=== PATIENT | male | born 1965 | race Caucasian/White ===

== ENCOUNTER 2019-07-23 16:57 | Emergency (ER) | payer OTHER ==
[~2019-07-23] VITALS: Ht 167.6 cm; Wt 72.0 kg
--- NOTE | 2019-07-23 20:22 | REPVR ---
PROCEDURE INFORMATION: Exam: MR Lumbar Spine Without Contrast. Exam date and time: 07/23/2019 8:02 PM Age: 54 years old Clinical indication: Other: Urinary retention, fall 2 wks ago TECHNIQUE: Imaging protocol: Multiplanar magnetic resonance images of the lumbar spine without contrast. COMPARISON: No relevant prior studies available. FINDINGS: Retrolisthesis of L4 on L5 measures 5 mm. Anterolisthesis of L5 on S1 secondary to bilateral L5 pars defects measures 12 mm. There is mild chronic loss of height of L5. Remaining levels demonstrate preserved height. There is degenerative endplate signal. No evidence of discitis/osteomyelitis. Conus medullaris terminates at L1. No epidural fluid collection. There is reactive edema involving the bilateral L3-L4 facet joints. L1-L2: Mild disc bulge without significant central or foraminal stenosis. L2-L3: Mild disc bulge and mild bilateral facet joint arthropathy. No significant central canal or foraminal stenosis. L2-L3: Mild disc bulge with moderate bilateral facet joint arthropathy, small bilateral facet joint effusions and posterior laxity of ligamentum flavum. No significant central canal stenosis. There is mild left foraminal stenosis. L4-L5: Mild disc bulge and mild bilateral facet joint arthropathy. No significant central canal stenosis. There is moderate bilateral foraminal stenosis. L5-S1: Unroofing of disc with mild disc bulge. No significant central canal stenosis. There is severe bilateral foraminal stenosis with mass effect upon both exiting L5 nerves. IMPRESSION: 1. Bilateral L5 pars defects with anterolisthesis of L5 on S1 measuring 12 mm. Associated severe bilateral foraminal stenosis at L5-S1 with mass effect upon both exiting L5 nerves. 2. No significant central canal compromise. 3. Reactive edema involving the bilateral L3-L4 facet joints. Finding can be pain generating. Electronically signed by: Judson Bennett On 07/23/2019 20:21:55 PM
[2019-07-23] MEDS ORDERED: FLOM0.4C39 PO (21:24)
[2019-07-23] MEDS ORDERED: TAMSULOSIN 0.4 MG CAP PO ONE (21:30)
[2019-07-23 22:04] VITALS: BP 164/96
[2019-07-23 22:13] LABS: BASO # 0.1 10^3/uL (0.0-0.2); BASO % 0.8 % (0.0-1.0); EOS # 0.2 10^3/uL (0.0-0.5); EOS % 1.7 % (0.0-3.0); HEMATOCRIT 44.9 % (42.0-52.0); HEMOGLOBIN 15.9 g/dl (13.5-17.5); LYMPH # 3.4 10^3/uL (1.5-5.0); LYMPH % 33.5 % (24.0-44.0); MEAN CORPUSCULAR HEMOGLOBIN 32.2 pg (27.0-33.0); MEAN CORPUSCULAR HGB CONC 35.4 g/dl (32.0-36.5); MEAN CORPUSCULAR VOLUME 90.9 fl (80.0-96.0); MONO # 1.1 10^3/uL (0.0-0.8); MONO % 10.2 % (0.0-5.0); NEUTROPHILS # 5.5 10^3/uL (1.5-8.5); NEUTROPHILS % 53.5 % (36.0-66.0); PLATELET COUNT, AUTOMATED 345 10^3/uL (150-450); RED BLOOD COUNT 4.94 10^6/uL (4.30-6.10); WHITE BLOOD COUNT 10.3 10^3/uL (4.0-10.0)
--- NOTE | 2019-07-24 10:51 | ED PDOC ---
Post-Departure Follow-Up dr tian faxed formal report of mri ls spine for fu Julio Chatman MD Jul 24, 2019 10:51
== END 2019-07-23 22:28 | disposition home or self-care (01) ==
LOC: M ED 16:57
DX: R33.9 Retention of urine, unspecified (principal); M54.16 Radiculopathy, lumbar region; M43.16 Spondylolisthesis, lumbar region; M99.53 Intervertebral disc stenosis of neural canal of lumbar region; F17.200 Nicotine dependence, unspecified, uncomplicated

== ENCOUNTER 2022-11-03 08:56 | Emergency (ER) | payer MEDICARE, OTHER ==
[~2022-11-03] VITALS: Ht 167.6 cm; Wt 67.8 kg
[2022-11-03 08:56] VITALS: TEMP 97.1
[~2022-11-03 08:56] MED LIST: FLOM0.4C39 PO
[2022-11-03] MEDS ORDERED: LACTULOSE 20GM/30ML SYRUP UDC PO ONE (10:00)
[2022-11-03] MEDS ORDERED: MIRA3350 PO (10:12)
[2022-11-03] MEDS ORDERED: COLA100C5 PO (10:12)
[2022-11-03 10:20] VITALS: BP 165/78; O2SAT 98
== END 2022-11-03 10:31 | disposition home or self-care (01) ==
LOC: M ED 08:56
DX: K59.00 Constipation, unspecified (principal); F17.200 Nicotine dependence, unspecified, uncomplicated; Z79.899 Other long term (current) drug therapy

== ENCOUNTER → 2023-02-01 | Outpatient (REF) | payer MEDICARE ==
[~2023-02-01] MED LIST changes: +COLA100C5 PO; +MIRA3350 PO
[2023-02-02 13:10] LABS: ALBUMIN 4.6 G/DL (3.2-5.2); ALKALINE PHOSPHATASE 114 U/L (46-116); ALT/SGPT 27 U/L (7.0-40); AST/SGOT 36 U/L (<34); BILIRUBIN,TOTAL 0.5 MG/DL (0.3-1.2); BLOOD UREA NITROGEN 9 MG/DL (9-23); CALCIUM LEVEL 9.6 MG/DL (8.5-10.1); CARBON DIOXIDE LEVEL 25 MMOL/L (20-31); CHLORIDE LEVEL 101 MMOL/L (98-107); CHOLESTEROL LEVEL 226 MG/DL (<200); CHOLESTEROL RISK RATIO 3.65 (<5); CREATININE FOR GFR 0.66 MG/DL (0.70-1.30); GLOMERULAR FILTRATION RATE > 60.0 (>56); GLUCOSE, FASTING 82 MG/DL (60-100); HDL CHOLESTEROL 61.9 MG/DL (>40); LDL CHOLESTEROL 148.9 MG/DL (<100); NON-HDL-C 164.1 MG/DL; POTASSIUM SERUM 4.3 MMOL/L (3.5-5.1); SODIUM LEVEL 132 MMOL/L (136-145); TOTAL PROTEIN 8.1 G/DL (5.7-8.2); TRIGLYCERIDES LEVEL 76 MG/DL (<150)
[2023-02-02 13:12] LABS: THYROID STIMULATING HORMONE 14.946 uIU/ML (0.55-4.78); TOTAL 25(OH) VITAMIN D 29.5 NG/ML (20.0-100.0)
[2023-02-02 13:21] LABS: BASO # 0.1 10^3/uL (0.0-0.2); BASO % 0.8 % (0.0-1.0); EOS # 0.1 10^3/uL (0.0-0.5); EOS % 0.9 % (0.0-3.0); HEMATOCRIT 43.4 % (42.0-52.0); HEMOGLOBIN 14.9 g/dl (13.5-17.5); LYMPH % 29.9 % (24.0-44.0); MEAN CORPUSCULAR HEMOGLOBIN 30.5 pg (27.0-33.0); MEAN CORPUSCULAR HGB CONC 34.3 g/dl (32.0-36.5); MEAN CORPUSCULAR VOLUME 88.9 fl (80.0-96.0); MONO # 1.1 10^3/uL (0.0-0.8); MONO % 10.6 % (2.0-8.0); NEUTROPHILS # 5.7 10^3/uL (1.5-8.5); NEUTROPHILS % 57.4 % (36.0-66.0); PLATELET COUNT, AUTOMATED 296 10^3/uL (150-450); RED BLOOD COUNT 4.88 10^6/uL (4.30-6.10); WHITE BLOOD COUNT 9.9 10^3/uL (4.0-10.0)
[2023-02-02 13:48] LABS: HEMOGLOBIN A1c 5.7 % (4.0-6.0)
== END ==
LOC: M LAB REF 12:09
PROVIDERS: ATTEND Nurse Practitioner Family
DX: E66.3 Overweight (principal); E55.9 Vitamin D deficiency, unspecified; Z11.9 Encounter for screening for infectious and parasitic diseases, unspecified; R33.8 Other retention of urine; R53.83 Other fatigue; Z79.899 Other long term (current) drug therapy
CPT/HCPCS: 80053; 80061; 82306; 83036; 84443; 85025; 86780; G0103

== ENCOUNTER → 2023-03-28 | Outpatient (REF) | payer MEDICARE ==
[2023-03-28 20:24] LABS: THYROID PEROXIDASE ANTIBODY > 1300.0 U/ML (<60.0)
== END ==
LOC: M LAB REF 16:23
PROVIDERS: ATTEND Nurse Practitioner Family
DX: R89.1 Abnormal level of hormones in specimens from other organs, systems and tissues (principal); Z79.899 Other long term (current) drug therapy

== ENCOUNTER → 2023-04-25 | Day surgery (SDC) | payer MEDICARE, MEDICAID ==
[~2023-04-25] VITALS: Ht 167.6 cm; Wt 66.6 kg
[~2023-04-25] MED LIST changes: +AMLO1TAB24 PO; +ATOR1TAB19 PO; +LIDOCAINE 2% 100MG/5ML SDV (FOR ANES.) As Ordered ONE; +META0.52 PO; +NS 1,000 ML IV ONE; +TAMS1CAP17 PO; +ePHEDrine SULFATE 25 MG/5 ML(5MG/ML) SYRINGE As Ordered ONE; +propofoL 200 MG/20 ML VIAL As Ordered ONE
[2023-04-25 10:27] VITALS: TEMP 97.3
[2023-04-25 10:45] VITALS: BP 135/88; O2SAT 97
== END | disposition home or self-care (01) ==
LOC: M OPP 08:35
PROVIDERS: ATTEND Surgery
DX: Z12.11 Encounter for screening for malignant neoplasm of colon (principal); D12.2 Benign neoplasm of ascending colon; D12.3 Benign neoplasm of transverse colon; K63.5 Polyp of colon; F17.200 Nicotine dependence, unspecified, uncomplicated; Z79.02 Long term (current) use of antithrombotics/antiplatelets; Z79.83 Long term (current) use of bisphosphonates; Z79.899 Other long term (current) drug therapy

== ENCOUNTER 2023-05-07 12:48 | Emergency (ER) | payer MEDICARE, MEDICAID ==
[~2023-05-07] VITALS: Ht 170.2 cm; Wt 79.3 kg
[~2023-05-07 12:48] MED LIST changes: -LIDOCAINE 2% 100MG/5ML SDV (FOR ANES.) As Ordered ONE; -NS 1,000 ML IV ONE; -ePHEDrine SULFATE 25 MG/5 ML(5MG/ML) SYRINGE As Ordered ONE; -propofoL 200 MG/20 ML VIAL As Ordered ONE
[2023-05-07] MEDS ORDERED: LEVO88TA3 PO (13:05)
[2023-05-07 15:02] LABS: BASO # 0.1 10^3/uL (0.0-0.2); BASO % 0.6 % (0.0-1.0); EOS # 0.1 10^3/uL (0.0-0.5); EOS % 0.7 % (0.0-3.0); HEMATOCRIT 40.5 % (42.0-52.0); HEMOGLOBIN 13.9 g/dl (13.5-17.5); LYMPH # 2.4 10^3/uL (1.5-5.0); LYMPH % 20.3 % (24.0-44.0); MEAN CORPUSCULAR HEMOGLOBIN 30.6 pg (27.0-33.0); MEAN CORPUSCULAR HGB CONC 34.3 g/dl (32.0-36.5); MEAN CORPUSCULAR VOLUME 89.2 fl (80.0-96.0); MONO # 1.2 10^3/uL (0.0-0.8); MONO % 10.5 % (2.0-8.0); NEUTROPHILS # 7.9 10^3/uL (1.5-8.5); NEUTROPHILS % 67.6 % (36.0-66.0); PLATELET COUNT, AUTOMATED 283 10^3/uL (150-450); RED BLOOD COUNT 4.54 10^6/uL (4.30-6.10); WHITE BLOOD COUNT 11.7 10^3/uL (4.0-10.0)
[2023-05-07] MEDS ORDERED: KETOROLAC 30 MG/ML 1ML VIAL IV ONE (15:20)
[2023-05-07 15:21] LABS: ALBUMIN 4.1 G/DL (3.2-5.2); BILIRUBIN,DIRECT 0.3 MG/DL (<0.4); BILIRUBIN,TOTAL 0.6 MG/DL (0.3-1.2); TOTAL PROTEIN 7.5 G/DL (5.7-8.2)
[2023-05-07] MEDS ORDERED: ISOVUE-370 76% 100ML VIAL As Ordered ONE ×2 (15:33→15:47)
[2023-05-07] MEDS ORDERED: LIDOCAINE 2% 5ML JELLY UROJET TOP ONE (16:30)
[2023-05-07] MEDS ORDERED: cefTRIAXone SOD 1 GM in D5W MINI-BAG PLUS 50 ML IV ONE (17:55)
[2023-05-07] MEDS ORDERED: CEFP200T PO (18:12)
[2023-05-07 19:27] VITALS: BP 149/88; TEMP 97.1; O2SAT 96
[2023-05-10] MEDS ORDERED: VITA40TA PO (10:08)
== END 2023-05-07 19:51 | disposition home or self-care (01) ==
LOC: M ED 12:48
DX: N39.0 Urinary tract infection, site not specified (principal); R16.0 Hepatomegaly, not elsewhere classified; R33.9 Retention of urine, unspecified; R91.8 Other nonspecific abnormal finding of lung field; E03.9 Hypothyroidism, unspecified; I10 Essential (primary) hypertension; Z79.02 Long term (current) use of antithrombotics/antiplatelets; Z79.1 Long term (current) use of non-steroidal anti-inflammatories (NSAID); Z79.83 Long term (current) use of bisphosphonates; Z79.899 Other long term (current) drug therapy
CPT/HCPCS: 51702; 71260; 74177; 76705; 80047; 80076; 81001; 83690; 85025; 87088; 96374; 96375; 99284; J0696; J1885; Q9967

== ENCOUNTER → 2023-05-25 | Outpatient (CLI) | payer MEDICARE, MEDICAID ==
[~2023-05-25] MED LIST changes: +CEFP200T PO; +LEVO88TA3 PO; +LIDOCAINE 1% MDV 20ML VIAL As Ordered ONE; +VITA40TA PO
[2023-05-25 10:16] VITALS: TEMP 97.5
[2023-05-25 13:30] VITALS: BP 155/64; O2SAT 97
== END ==
LOC: M IRPRO 09:48
PROVIDERS: ATTEND Specialist
DX: C78.7 Secondary malignant neoplasm of liver and intrahepatic bile duct (principal); K76.89 Other specified diseases of liver

== ENCOUNTER → 2023-06-11 | Outpatient (REF) | payer MEDICARE, MEDICAID, OTHER ==
[~2023-06-11] MED LIST changes: -LIDOCAINE 1% MDV 20ML VIAL As Ordered ONE
== END ==
LOC: M LAB REF 11:38
PROVIDERS: ATTEND Nurse Practitioner Family
DX: E03.9 Hypothyroidism, unspecified (principal)

== ENCOUNTER → 2023-06-25 | Outpatient (REF) | payer MEDICARE, MEDICAID, OTHER | LOC: M LAB REF 16:03 | PROVIDERS: ATTEND Nurse Practitioner Family | DX: R39.9 Unspecified symptoms and signs involving the genitourinary system (principal) ==

== ENCOUNTER → 2023-07-04 | Outpatient (CLI) | payer MEDICARE, MEDICAID ==
[~2023-07-04] VITALS: Ht 170.2 cm; Wt 65.0 kg
[~2023-07-04] MED LIST changes: +DEXA4TA PO; +FOLI1TAB11 PO; +LIDOCAINE 1% MDV 20ML VIAL As Ordered ONE; +LIDOCAINE W/EPINEPHRINE 1% 20ML VIAL As Ordered ONE; +MIDAZOLAM INJ 2MG/2ML VIAL As Ordered ONE; +OMEP20TA3 PO; +ONDA-84 PO; +RANI15TA PO; +ceFAZolin 2 GM/D5W 50 ML IV BAG As Ordered ONE; +ceFAZolin SOD 2 GM in IV 1 EA IV ONE; +fentaNYL 100 MCG/2 ML INJECTION As Ordered ONE
[2023-07-04 07:15] VITALS: TEMP 97.6
[2023-07-04 09:40] VITALS: BP 117/71; O2SAT 96
== END ==
LOC: M IRPRO 06:48
PROVIDERS: ATTEND Specialist
DX: K76.9 Liver disease, unspecified (principal)
CPT/HCPCS: 36561; 99152; 99153; C1769; J0690; J2250; J3010

== ENCOUNTER → 2023-07-17 | Outpatient (CLI) | payer MEDICARE, MEDICAID ==
[~2023-07-17] MED LIST changes: +GASTROGRAFIN SOLUTION 30ML As Ordered ONE; +ISOVUE-370 76% 100ML VIAL As Ordered ONE; -LIDOCAINE 1% MDV 20ML VIAL As Ordered ONE; -LIDOCAINE W/EPINEPHRINE 1% 20ML VIAL As Ordered ONE; -MIDAZOLAM INJ 2MG/2ML VIAL As Ordered ONE; -ceFAZolin 2 GM/D5W 50 ML IV BAG As Ordered ONE; -ceFAZolin SOD 2 GM in IV 1 EA IV ONE; -fentaNYL 100 MCG/2 ML INJECTION As Ordered ONE
== END ==
LOC: M RAD 08:29
PROVIDERS: ATTEND Internal Medicine Hematology & Oncology
DX: C34.11 Malignant neoplasm of upper lobe, right bronchus or lung (principal); C78.7 Secondary malignant neoplasm of liver and intrahepatic bile duct; N28.89 Other specified disorders of kidney and ureter; R18.8 Other ascites; I70.0 Atherosclerosis of aorta; E27.9 Disorder of adrenal gland, unspecified; I77.819 Aortic ectasia, unspecified site; I25.10 Atherosclerotic heart disease of native coronary artery without angina pectoris
CPT/HCPCS: 71260; 74177; Q9963; Q9967

== ENCOUNTER 2023-07-19 13:34 | Inpatient (IN) | payer MEDICARE, MEDICAID ==
[~2023-07-19] VITALS: Ht 170.2 cm; Wt 70.4 kg
[2023-07-19] VITALS (18 sets, daily range): BP systolic 81–135; BP diastolic 51–80; TEMP 96.5–98.1; O2SAT 97–100
[~2023-07-19 13:34] MED LIST changes: -GASTROGRAFIN SOLUTION 30ML As Ordered ONE; -ISOVUE-370 76% 100ML VIAL As Ordered ONE
[2023-07-19] MEDS: NS 1,000 ML IV ONE (13:45)
[2023-07-19 14:26] LABS: BASO % 0.1 % (0.0-1.0); LYMPH # 1.6 10^3/uL (1.5-5.0); LYMPH % 11.3 % (24.0-44.0); MEAN CORPUSCULAR HEMOGLOBIN 32.1 pg (27.0-33.0); MEAN CORPUSCULAR HGB CONC 31.8 g/dl (32.0-36.5); MEAN CORPUSCULAR VOLUME 100.9 fl (80.0-96.0); MONO # 0.5 10^3/uL (0.0-0.8); MONO % 3.5 % (2.0-8.0); NEUTROPHILS # 11.5 10^3/uL (1.5-8.5); NEUTROPHILS % 83.9 % (36.0-66.0); PLATELET COUNT, AUTOMATED 156 10^3/uL (150-450); RED BLOOD COUNT 2.12 10^6/uL (4.30-6.10); WHITE BLOOD COUNT 13.7 10^3/uL (4.0-10.0)
[2023-07-19 14:40] LABS: HEMOGLOBIN 6.8 g/dl (13.5-17.5)
[2023-07-19 14:41] LABS: HEMATOCRIT 21.4 % (42.0-52.0)
[2023-07-19 14:42] LABS: INR 2.33; PARTIAL THROMBOPLASTIN TIME 33.7 SECONDS (24.8-34.2); PROTHROMBIN TIME 24.7 SECONDS (12.5-14.5)
[2023-07-19 14:47] LABS: CK-MB VALUE MASS 8.7 NG/ML (<3.6)
[2023-07-19 14:48] LABS: LIPASE 35 U/L (12-53)
[2023-07-19 14:50] LABS: CPK CREATINE PHOSPHOKINASE 292 U/L (46-171); MB/CK RELATIVE INDEX 2.97 (< OR =4)
[2023-07-19 14:52] LABS: FREE T4 1.13 NG/DL (0.89-1.76); THYROID STIMULATING HORMONE 2.571 uIU/ML (0.55-4.78)
[2023-07-19 14:57] LABS: ALBUMIN 1.9 G/DL (3.2-5.2); ALKALINE PHOSPHATASE 535 U/L (46-116); ALT/SGPT 92 U/L (7.0-40); AST/SGOT 224 U/L (<34); BILIRUBIN,DIRECT 1.9 MG/DL (<0.4); BILIRUBIN,TOTAL 2.3 MG/DL (0.3-1.2); BLOOD UREA NITROGEN 74 MG/DL (9-23); CARBON DIOXIDE LEVEL 17 MMOL/L (20-31); CHLORIDE LEVEL 95 MMOL/L (98-107); CREATININE FOR GFR 0.96 MG/DL (0.70-1.30); GLOMERULAR FILTRATION RATE > 60.0 (>49); GLUCOSE, FASTING 142 MG/DL (74-106); POTASSIUM SERUM 5.4 MMOL/L (3.5-5.1); SODIUM LEVEL 132 MMOL/L (136-145); TOTAL PROTEIN 4.6 G/DL (5.7-8.2)
[2023-07-19] MEDS ORDERED: ISOVUE-370 76% 100ML VIAL As Ordered ONE (15:05)
[2023-07-19] MEDS: PANTOPRAZOLE 40MG VIAL IV ONE (15:47)
[2023-07-19] MEDS: OCTREOTIDE ACETATE 100MCG/ML VIAL **IV ADMINISTRATION ONLY IV ONE (15:47)
[2023-07-19] MEDS: PIPERACILLIN/TAZOBACTAM SOD 4.5 GM in D5W MINI-BAG PLUS 50 ML IV ONE (15:48)
[2023-07-19] MEDS: NS IV ONE (15:48)
[2023-07-19] MEDS: OCTREOTIDE ACETATE 1,200 MCG in NS 238.8 ML IV SCH (17:28)
[2023-07-19] MEDS: PANTOPRAZOLE SODIUM 40 MG in D5W MINI-BAG PLUS 50 ML IV SCH (17:28)
[2023-07-19] MEDS ORDERED: LEVOTHYROXINE 100MCG (0.1MG) 5ML SDV PF (SOLUTION FORM) IV SCH (17:40)
[2023-07-19] MEDS ORDERED: dexAMETHasone 20MG/5ML VIAL IV PRN (17:40)
[2023-07-19] MEDS ORDERED: ONDANSETRON 4MG 2ML VIAL IV PRN (17:40)
[2023-07-19] MEDS ORDERED: HOME MED LIST COMPLETE! XX SCH (18:15)
[2023-07-19 19:42] LABS: BASO % 0.1 % (0.0-1.0); HEMATOCRIT 24.7 % (42.0-52.0); HEMOGLOBIN 7.9 g/dl (13.5-17.5); LYMPH # 1.8 10^3/uL (1.5-5.0); MEAN CORPUSCULAR HEMOGLOBIN 32.6 pg (27.0-33.0); MEAN CORPUSCULAR VOLUME 102.1 fl (80.0-96.0); MONO # 0.6 10^3/uL (0.0-0.8); MONO % 3.7 % (2.0-8.0); NEUTROPHILS # 12.7 10^3/uL (1.5-8.5); NEUTROPHILS % 83.3 % (36.0-66.0); PLATELET COUNT, AUTOMATED 137 10^3/uL (150-450); RED BLOOD COUNT 2.42 10^6/uL (4.30-6.10); WHITE BLOOD COUNT 15.2 10^3/uL (4.0-10.0)
[2023-07-19] MEDS: cefTRIAXone SOD 1 GM in D5W MINI-BAG PLUS 50 ML IV SCH (23:26)
[2023-07-20] VITALS (29 sets, daily range): BP systolic 90–132; BP diastolic 54–89; TEMP 97.3–98.8; O2SAT 92–97
[2023-07-20 01:51] LABS: HEMATOCRIT 26.3 % (42.0-52.0); HEMOGLOBIN 8.6 g/dl (13.5-17.5)
[2023-07-20 04:54] LABS: HEMATOCRIT 26.4 % (42.0-52.0); HEMOGLOBIN 8.9 g/dl (13.5-17.5); MEAN CORPUSCULAR HEMOGLOBIN 31.8 pg (27.0-33.0); MEAN CORPUSCULAR HGB CONC 33.7 g/dl (32.0-36.5); MEAN CORPUSCULAR VOLUME 94.3 fl (80.0-96.0); PLATELET COUNT, AUTOMATED 136 10^3/uL (150-450); WHITE BLOOD COUNT 20.2 10^3/uL (4.0-10.0)
[2023-07-20 05:21] LABS: ALKALINE PHOSPHATASE 504 U/L (46-116); ALT/SGPT 163 U/L (7.0-40); AST/SGOT 460 U/L (<34); BILIRUBIN,TOTAL 3.3 MG/DL (0.3-1.2); BLOOD UREA NITROGEN 81 MG/DL (9-23); CALCIUM LEVEL 8.4 MG/DL (8.3-10.6); CARBON DIOXIDE LEVEL 18 MMOL/L (20-31); CHLORIDE LEVEL 103 MMOL/L (98-107); CREATININE FOR GFR 0.92 MG/DL (0.70-1.30); GLOMERULAR FILTRATION RATE > 60.0 (>49); GLUCOSE, FASTING 126 MG/DL (74-106); MAGNESIUM LEVEL 2.4 MG/DL (1.8-2.4); PHOSPHORUS LEVEL 4.4 MG/DL (2.4-5.1); POTASSIUM SERUM 5.5 MMOL/L (3.5-5.1); SODIUM LEVEL 137 MMOL/L (136-145); TOTAL PROTEIN 4.7 G/DL (5.7-8.2)
[2023-07-20 05:24] LABS: ANISOCYTOSIS 1+; LYMPHOCYTES 13 % (16-44); MONOCYTES 4 % (0-5); NEUTROPHILS 83 % (28-66)
[2023-07-20 05:25] LABS: PLATELET ESTIMATE DECREASED (NORMAL)
[2023-07-20 05:26] LABS: POIKILOCYTOSIS 1+
[2023-07-20] MEDS: LEVOTHYROXINE 88MCG TABLET (0.088 MG) PO SCH (06:00)
[2023-07-20] MEDS: CALCIUM GLUCONATE 1,000 MG in D5W MINI-BAG PLUS 100 ML IV ONE (06:12)
[2023-07-20] MEDS: HumuLIN R (REGULAR) INSULIN (NovoLIN R) **100U/ML** PER UNIT IV STA (06:13)
[2023-07-20] MEDS: DEXTROSE 50% 50ML SYRINGE IV STA (06:13)
[2023-07-20] MEDS: SODIUM CHLORIDE 0.9% INJ 10 ML SYR IV PRN (08:22)
[2023-07-20] MEDS: D5W/LR 1,000 ML IV SCH (08:32)
[2023-07-20] MEDS ORDERED: ERYTHROMYCIN 250MG TABLET PO ONE (12:40)
[2023-07-20] MEDS: METOCLOPRAMIDE INJ 10MG/2ML VIAL IV ONE (12:55)
[2023-07-20 13:12] LABS: BASO % 0.1 % (0.0-1.0); HEMATOCRIT 23.8 % (42.0-52.0); HEMOGLOBIN 8.1 g/dl (13.5-17.5); LYMPH # 1.9 10^3/uL (1.5-5.0); LYMPH % 9.2 % (24.0-44.0); MEAN CORPUSCULAR HEMOGLOBIN 31.4 pg (27.0-33.0); MEAN CORPUSCULAR VOLUME 92.2 fl (80.0-96.0); MONO % 9.4 % (2.0-8.0); NEUTROPHILS # 16.9 10^3/uL (1.5-8.5); NEUTROPHILS % 80.4 % (36.0-66.0); PLATELET COUNT, AUTOMATED 140 10^3/uL (150-450); RED BLOOD COUNT 2.58 10^6/uL (4.30-6.10)
[2023-07-20] MEDS ORDERED: fentaNYL 100 MCG/2 ML INJECTION As Ordered ONE (13:25)
[2023-07-20] MEDS ORDERED: ROCURONIUM BROMIDE 50MG/5ML VIAL As Ordered ONE (13:26)
[2023-07-20] MEDS ORDERED: ETOMIDATE INJ 20MG/10ML VIAL As Ordered ONE (13:26)
[2023-07-20] MEDS ORDERED: SUGAMMADEX SODIUM 500 MG/5 ML VIAL (BRIDION) As Ordered ONE (13:27)
[2023-07-20] MEDS ORDERED: ONDANSETRON 4MG 2ML VIAL As Ordered ONE (13:27)
[2023-07-20] MEDS ORDERED: GLYCOPYRROLATE INJ 0.2 MG/ML 2 ML VIAL As Ordered ONE (13:27)
[2023-07-20] MEDS ORDERED: LIDOCAINE 2% 100MG/5ML SDV (FOR ANES.) As Ordered ONE (13:31)
[2023-07-20 13:42] LABS: ALBUMIN 2.2 G/DL (3.2-5.2); ALKALINE PHOSPHATASE 436 U/L (46-116); ALT/SGPT 163 U/L (7.0-40); AST/SGOT 525 U/L (<34); BILIRUBIN,TOTAL 3.1 MG/DL (0.3-1.2); BLOOD UREA NITROGEN 79 MG/DL (9-23); CALCIUM LEVEL 8.6 MG/DL (8.3-10.6); CARBON DIOXIDE LEVEL 20 MMOL/L (20-31); CHLORIDE LEVEL 105 MMOL/L (98-107); CREATININE FOR GFR 0.81 MG/DL (0.70-1.30); GLOMERULAR FILTRATION RATE > 60.0 (>49); GLUCOSE, FASTING 166 MG/DL (74-106); POTASSIUM SERUM 5.3 MMOL/L (3.5-5.1); SODIUM LEVEL 136 MMOL/L (136-145)
[2023-07-20 19:36] LABS: EOS % 0.2 % (0.0-3.0); HEMATOCRIT 25.5 % (42.0-52.0); HEMOGLOBIN 8.6 g/dl (13.5-17.5); LYMPH # 1.8 10^3/uL (1.5-5.0); LYMPH % 8.5 % (24.0-44.0); MEAN CORPUSCULAR HEMOGLOBIN 31.5 pg (27.0-33.0); MEAN CORPUSCULAR HGB CONC 33.7 g/dl (32.0-36.5); MEAN CORPUSCULAR VOLUME 93.4 fl (80.0-96.0); MONO # 2.3 10^3/uL (0.0-0.8); MONO % 10.7 % (2.0-8.0); NEUTROPHILS # 17.4 10^3/uL (1.5-8.5); NEUTROPHILS % 79.9 % (36.0-66.0); PLATELET COUNT, AUTOMATED 130 10^3/uL (150-450); RED BLOOD COUNT 2.73 10^6/uL (4.30-6.10); WHITE BLOOD COUNT 21.8 10^3/uL (4.0-10.0)
[2023-07-21] VITALS (12 sets, daily range): BP systolic 101–125; BP diastolic 57–76; TEMP 97.5–98.6; O2SAT 92–96
[2023-07-21 00:52] LABS: BASO % 0.1 % (0.0-1.0); EOS % 0.1 % (0.0-3.0); HEMATOCRIT 22.2 % (42.0-52.0); HEMOGLOBIN 7.7 g/dl (13.5-17.5); LYMPH # 1.6 10^3/uL (1.5-5.0); MEAN CORPUSCULAR HEMOGLOBIN 31.4 pg (27.0-33.0); MEAN CORPUSCULAR HGB CONC 34.7 g/dl (32.0-36.5); MEAN CORPUSCULAR VOLUME 90.6 fl (80.0-96.0); MONO # 1.5 10^3/uL (0.0-0.8); MONO % 8.3 % (2.0-8.0); NEUTROPHILS # 14.6 10^3/uL (1.5-8.5); NEUTROPHILS % 81.9 % (36.0-66.0); PLATELET COUNT, AUTOMATED 105 10^3/uL (150-450); RED BLOOD COUNT 2.45 10^6/uL (4.30-6.10); WHITE BLOOD COUNT 17.9 10^3/uL (4.0-10.0)
[2023-07-21 07:12] LABS: BASO % 0.1 % (0.0-1.0); EOS % 0.1 % (0.0-3.0); HEMATOCRIT 21.8 % (42.0-52.0); HEMOGLOBIN 7.7 g/dl (13.5-17.5); LYMPH # 1.6 10^3/uL (1.5-5.0); LYMPH % 9.8 % (24.0-44.0); MEAN CORPUSCULAR HEMOGLOBIN 32.2 pg (27.0-33.0); MEAN CORPUSCULAR HGB CONC 35.3 g/dl (32.0-36.5); MEAN CORPUSCULAR VOLUME 91.2 fl (80.0-96.0); NEUTROPHILS # 13.4 10^3/uL (1.5-8.5); NEUTROPHILS % 83.4 % (36.0-66.0); PLATELET COUNT, AUTOMATED 108 10^3/uL (150-450); RED BLOOD COUNT 2.39 10^6/uL (4.30-6.10); WHITE BLOOD COUNT 16.1 10^3/uL (4.0-10.0)
[2023-07-21 07:59] LABS: BLOOD UREA NITROGEN 64 MG/DL (9-23); CALCIUM LEVEL 7.6 MG/DL (8.3-10.6); CARBON DIOXIDE LEVEL 26 MMOL/L (20-31); CHLORIDE LEVEL 103 MMOL/L (98-107); CREATININE FOR GFR 0.69 MG/DL (0.70-1.30); GLOMERULAR FILTRATION RATE > 60.0 (>49); GLUCOSE, FASTING 143 MG/DL (74-106); POTASSIUM SERUM 4.5 MMOL/L (3.5-5.1); SODIUM LEVEL 136 MMOL/L (136-145)
[2023-07-21 13:14] LABS: BASO % 0.1 % (0.0-1.0); EOS % 0.1 % (0.0-3.0); LYMPH # 1.5 10^3/uL (1.5-5.0); LYMPH % 9.8 % (24.0-44.0); MEAN CORPUSCULAR HEMOGLOBIN 31.3 pg (27.0-33.0); MEAN CORPUSCULAR HGB CONC 34.8 g/dl (32.0-36.5); MEAN CORPUSCULAR VOLUME 89.8 fl (80.0-96.0); MONO # 0.9 10^3/uL (0.0-0.8); MONO % 5.9 % (2.0-8.0); NEUTROPHILS # 13.1 10^3/uL (1.5-8.5); NEUTROPHILS % 83.6 % (36.0-66.0); PLATELET COUNT, AUTOMATED 105 10^3/uL (150-450); RED BLOOD COUNT 2.56 10^6/uL (4.30-6.10); WHITE BLOOD COUNT 15.6 10^3/uL (4.0-10.0)
[2023-07-22 04:30] VITALS: BP 112/78; TEMP 98.1; O2SAT 93
[2023-07-22 06:46] LABS: HEMATOCRIT 22.2 % (42.0-52.0); HEMOGLOBIN 7.8 g/dl (13.5-17.5); MEAN CORPUSCULAR HEMOGLOBIN 31.6 pg (27.0-33.0); MEAN CORPUSCULAR HGB CONC 35.1 g/dl (32.0-36.5); MEAN CORPUSCULAR VOLUME 89.9 fl (80.0-96.0); RED BLOOD COUNT 2.47 10^6/uL (4.30-6.10); WHITE BLOOD COUNT 14.6 10^3/uL (4.0-10.0)
[2023-07-22 07:19] LABS: BLOOD UREA NITROGEN 44 MG/DL (9-23); CALCIUM LEVEL 7.5 MG/DL (8.3-10.6); CARBON DIOXIDE LEVEL 26 MMOL/L (20-31); CHLORIDE LEVEL 100 MMOL/L (98-107); CREATININE FOR GFR 0.66 MG/DL (0.70-1.30); GLOMERULAR FILTRATION RATE > 60.0 (>49); GLUCOSE, FASTING 90 MG/DL (74-106); POTASSIUM SERUM 4.2 MMOL/L (3.5-5.1); SODIUM LEVEL 133 MMOL/L (136-145)
[2023-07-22 07:31] LABS: PLATELET COUNT, AUTOMATED 87 10^3/uL (150-450)
[2023-07-22] MEDS: FOLIC ACID 1MG TAB PO SCH (08:23)
[2023-07-22] MEDS: TAMSULOSIN 0.4 MG CAP PO SCH (08:23)
[2023-07-22] MEDS: ATORVASTATIN 10 MG TAB PO SCH (08:23)
[2023-07-22] MEDS: amLODIPine 5 MG TAB PO SCH (08:26)
[2023-07-22 08:35] VITALS: BP 88/50
[2023-07-22] MEDS: PANTOPRAZOLE 40MG TAB (PROTONIX) PO SCH (09:00)
[2023-07-22] MEDS: NS 500 ML IV ONE (09:30)
[2023-07-22 10:04] VITALS: BP 98/72
[2023-07-22 12:01] LABS: HEMATOCRIT 21.4 % (42.0-52.0); HEMOGLOBIN 7.4 g/dl (13.5-17.5); MEAN CORPUSCULAR HEMOGLOBIN 31.4 pg (27.0-33.0); MEAN CORPUSCULAR HGB CONC 34.6 g/dl (32.0-36.5); MEAN CORPUSCULAR VOLUME 90.7 fl (80.0-96.0); RED BLOOD COUNT 2.36 10^6/uL (4.30-6.10)
[2023-07-22 12:03] LABS: PLATELET COUNT, AUTOMATED 77 10^3/uL (150-450)
[2023-07-22] MEDS: NS 0.45% 1,000 ML IV SCH (12:30)
[2023-07-22 14:00] VITALS: BP 105/69; TEMP 98.1; O2SAT 92
[2023-07-22 22:07] VITALS: BP 91/59; TEMP 98.6; O2SAT 92
[2023-07-23] VITALS (7 sets, daily range): BP systolic 93–102; BP diastolic 52–66; TEMP 97.7–98.6; O2SAT 90–95
[2023-07-23 06:12] LABS: HEMATOCRIT 22.5 % (42.0-52.0); HEMOGLOBIN 7.8 g/dl (13.5-17.5); MEAN CORPUSCULAR HEMOGLOBIN 31.5 pg (27.0-33.0); MEAN CORPUSCULAR HGB CONC 34.7 g/dl (32.0-36.5); MEAN CORPUSCULAR VOLUME 90.7 fl (80.0-96.0); RED BLOOD COUNT 2.48 10^6/uL (4.30-6.10); WHITE BLOOD COUNT 13.1 10^3/uL (4.0-10.0)
[2023-07-23 06:21] LABS: PLATELET COUNT, AUTOMATED 71 10^3/uL (150-450)
[2023-07-23 06:44] LABS: BLOOD UREA NITROGEN 35 MG/DL (9-23); CARBON DIOXIDE LEVEL 24 MMOL/L (20-31); CHLORIDE LEVEL 98 MMOL/L (98-107); CREATININE FOR GFR 0.57 MG/DL (0.70-1.30); GLOMERULAR FILTRATION RATE > 60.0 (>49); GLUCOSE, FASTING 85 MG/DL (74-106); POTASSIUM SERUM 4.5 MMOL/L (3.5-5.1); SODIUM LEVEL 128 MMOL/L (136-145)
[2023-07-24] VITALS (15 sets, daily range): BP systolic 80–125; BP diastolic 49–79; TEMP 96.1–98; O2SAT 90–96
[2023-07-24 06:47] LABS: MEAN CORPUSCULAR HEMOGLOBIN 31.6 pg (27.0-33.0); MEAN CORPUSCULAR HGB CONC 34.9 g/dl (32.0-36.5); MEAN CORPUSCULAR VOLUME 90.5 fl (80.0-96.0); RED BLOOD COUNT 2.31 10^6/uL (4.30-6.10); WHITE BLOOD COUNT 10.7 10^3/uL (4.0-10.0)
[2023-07-24 06:50] LABS: HEMATOCRIT 20.9 % (42.0-52.0); HEMOGLOBIN 7.3 g/dl (13.5-17.5)
[2023-07-24 06:51] LABS: PLATELET COUNT, AUTOMATED 62 10^3/uL (150-450)
[2023-07-24 07:20] LABS: BLOOD UREA NITROGEN 33 MG/DL (9-23); CALCIUM LEVEL 6.8 MG/DL (8.3-10.6); CARBON DIOXIDE LEVEL 23 MMOL/L (20-31); CHLORIDE LEVEL 98 MMOL/L (98-107); CREATININE FOR GFR 0.54 MG/DL (0.70-1.30); GLOMERULAR FILTRATION RATE > 60.0 (>49); GLUCOSE, FASTING 93 MG/DL (74-106); POTASSIUM SERUM 4.5 MMOL/L (3.5-5.1); SODIUM LEVEL 129 MMOL/L (136-145)
[2023-07-24] MEDS: PERCOCET 5MG/325MG TAB PO ONE (08:41)
[2023-07-24] MEDS: MIDODRINE 5 MG TAB PO ONE ×2 (08:42→15:53)
[2023-07-24] MEDS: NS 2,000 ML IV ONE (09:00)
[2023-07-24 09:18] LABS: D-DIMER QUANT 3.13 ug/mL (<0.5); INR 1.53; PARTIAL THROMBOPLASTIN TIME 34.9 SECONDS (24.8-34.2); PROTHROMBIN TIME 17.9 SECONDS (12.5-14.5)
[2023-07-24] MEDS ORDERED: CIPR-249 PO (14:44)
[2023-07-24] MEDS ORDERED: SENO8.6T10 PO (14:44)
[2023-07-24] MEDS ORDERED: FERR325T3 PO (14:44)
[2023-07-24] MEDS ORDERED: PROT1TAB2 PO (14:44)
[2023-07-24] MEDS ORDERED: VITA500C24 PO (14:44)
[2023-07-24] MEDS ORDERED: PROP10TA56 PO (14:44)
[2023-07-24] MEDS: MORPHINE 10 MG/ML 1ML VIAL IV ONE (16:48)
[2023-07-24] MEDS: NS 1,000 ML IV ONE (16:48)
[2023-07-24] MEDS: GASTROGRAFIN SOLUTION 30ML PO SCH (17:12)
[2023-07-24] MEDS: ASCORBIC ACID 500 MG TAB PO SCH (17:12)
[2023-07-24 18:56] LABS: HEMATOCRIT 25.6 % (42.0-52.0)
[2023-07-24 19:28] LABS: BLOOD UREA NITROGEN 30 MG/DL (9-23); CALCIUM LEVEL 6.4 MG/DL (8.3-10.6); CARBON DIOXIDE LEVEL 22 MMOL/L (20-31); CHLORIDE LEVEL 100 MMOL/L (98-107); CREATININE FOR GFR 0.52 MG/DL (0.70-1.30); GLOMERULAR FILTRATION RATE > 60.0 (>49); GLUCOSE, FASTING 90 MG/DL (74-106); POTASSIUM SERUM 4.4 MMOL/L (3.5-5.1); SODIUM LEVEL 128 MMOL/L (136-145)
[2023-07-24] MEDS: PROPRANOLOL 10 MG TAB PO SCH (21:00)
[2023-07-24] MEDS: SENOKOT S TAB PO PRN (21:20)
[2023-07-24] MEDS: MIRALAX *UNIT DOSE* 17GM PACKET PO SCH (21:20)
[2023-07-24] MEDS: FERROUS SULFATE 325MG TAB PO SCH (21:20)
[2023-07-25] VITALS (14 sets, daily range): BP systolic 91–102; BP diastolic 61–70; TEMP 97–98.6; O2SAT 88–91
[2023-07-25 00:15] LABS: HEMATOCRIT 24.9 % (42.0-52.0); HEMOGLOBIN 8.7 g/dl (13.5-17.5)
[2023-07-25 00:48] LABS: BLOOD UREA NITROGEN 29 MG/DL (9-23); CALCIUM LEVEL 6.7 MG/DL (8.3-10.6); CARBON DIOXIDE LEVEL 21 MMOL/L (20-31); CHLORIDE LEVEL 99 MMOL/L (98-107); CREATININE FOR GFR 0.46 MG/DL (0.70-1.30); GLOMERULAR FILTRATION RATE > 60.0 (>49); GLUCOSE, FASTING 109 MG/DL (74-106); POTASSIUM SERUM 4.4 MMOL/L (3.5-5.1); SODIUM LEVEL 126 MMOL/L (136-145)
[2023-07-25] MEDS: NS 500 ML IV ONE (04:31)
[2023-07-25 06:34] LABS: HEMOGLOBIN 8.7 g/dl (13.5-17.5); MEAN CORPUSCULAR HGB CONC 34.8 g/dl (32.0-36.5); RED BLOOD COUNT 2.81 10^6/uL (4.30-6.10); WHITE BLOOD COUNT 6.4 10^3/uL (4.0-10.0)
[2023-07-25 06:41] LABS: PLATELET COUNT, AUTOMATED 45 10^3/uL (150-450)
[2023-07-25 06:56] LABS: BLOOD UREA NITROGEN 30 MG/DL (9-23); CARBON DIOXIDE LEVEL 22 MMOL/L (20-31); CHLORIDE LEVEL 98 MMOL/L (98-107); CREATININE FOR GFR 0.48 MG/DL (0.70-1.30); GLOMERULAR FILTRATION RATE > 60.0 (>49); GLUCOSE, FASTING 95 MG/DL (74-106); POTASSIUM SERUM 4.5 MMOL/L (3.5-5.1); SODIUM LEVEL 127 MMOL/L (136-145)
[2023-07-25] MEDS ORDERED: BISACODYL 10MG SUPP PR PRN (10:30)
[2023-07-25] MEDS ORDERED: FLEET ENEMA PR PRN (10:30)
[2023-07-25 11:02] LABS: ALBUMIN 1.6 G/DL (3.2-5.2); ALKALINE PHOSPHATASE 632 U/L (46-116); ALT/SGPT 150 U/L (7.0-40); AST/SGOT 293 U/L (<34); BILIRUBIN,DIRECT 6.3 MG/DL (<0.4); BILIRUBIN,TOTAL 8.1 MG/DL (0.3-1.2); TOTAL PROTEIN 4.3 G/DL (5.7-8.2)
[2023-07-25] MEDS: AZITHROMYCIN 250MG TABLET PO ONE (12:38)
[2023-07-25] MEDS: SODIUM CHLORIDE 1 GM TAB PO SCH (12:38)
[2023-07-25] MEDS: MIDODRINE 5 MG TAB PO SCH (12:38)
[2023-07-25 16:13] LABS: SOURCE, BODY FLUID ASCITES
[2023-07-25 16:14] LABS: APPEARANCE, BODY FLUID HAZY (CLEAR); ASCITES FL COLOR YELLOW (COLORLESS)
[2023-07-25 16:26] LABS: SOURCE, BODY FLUID ALBUMIN ASCITES
[2023-07-25 16:31] LABS: SOURCE, BODY FLUID GLUCOSE ASCITES
[2023-07-25 16:33] LABS: SOURCE, BODY FLUID TOT PROTEIN ASCITES; TOTAL PROTEIN, BODY FLUID < 2.0 G/DL (NOT ESTABLISHED)
[2023-07-25] MEDS: cefTRIAXone SOD 2 GM in D5W MINI-BAG PLUS 50 ML IV SCH (20:32)
[2023-07-25] MEDS: MOM 30ML SUSPENSION UDC PO PRN (20:32)
[2023-07-25] MEDS: NORCO, ANEXSIA 5/325MG TABLET (HYDROcodone/ACETAMINOPHEN) PO PRN (21:13)
[2023-07-26] VITALS (16 sets, daily range): BP systolic 99–110; BP diastolic 64–71; TEMP 97.2–99.7; O2SAT 90–98
[2023-07-26 06:39] LABS: HEMOGLOBIN 7.8 g/dl (13.5-17.5); MEAN CORPUSCULAR HEMOGLOBIN 30.8 pg (27.0-33.0); MEAN CORPUSCULAR HGB CONC 35.5 g/dl (32.0-36.5); RED BLOOD COUNT 2.53 10^6/uL (4.30-6.10); WHITE BLOOD COUNT 3.8 10^3/uL (4.0-10.0)
[2023-07-26 06:46] LABS: PLATELET COUNT, AUTOMATED 30 10^3/uL (150-450)
[2023-07-26 07:05] LABS: BLOOD UREA NITROGEN 29 MG/DL (9-23); CALCIUM LEVEL 7.1 MG/DL (8.3-10.6); CARBON DIOXIDE LEVEL 21 MMOL/L (20-31); CHLORIDE LEVEL 99 MMOL/L (98-107); CREATININE FOR GFR 0.53 MG/DL (0.70-1.30); GLOMERULAR FILTRATION RATE > 60.0 (>49); GLUCOSE, FASTING 135 MG/DL (74-106); POTASSIUM SERUM 4.4 MMOL/L (3.5-5.1); SODIUM LEVEL 128 MMOL/L (136-145)
[2023-07-26] MEDS: AZITHROMYCIN 250MG TABLET PO SCH (08:19)
[2023-07-26] MEDS: oxyCODONE 5MG TAB PO ONE (08:20)
[2023-07-26 20:40] LABS: HEMATOCRIT 23.9 % (42.0-52.0); HEMOGLOBIN 8.6 g/dl (13.5-17.5); MEAN CORPUSCULAR HEMOGLOBIN 30.8 pg (27.0-33.0); MEAN CORPUSCULAR VOLUME 85.7 fl (80.0-96.0); RED BLOOD COUNT 2.79 10^6/uL (4.30-6.10); WHITE BLOOD COUNT 4.5 10^3/uL (4.0-10.0)
[2023-07-26 20:43] LABS: PLATELET COUNT, AUTOMATED 21 10^3/uL (150-450)
[2023-07-27 00:51] VITALS: BP 91/58; TEMP 98.4; O2SAT 94
[2023-07-27 06:00] VITALS: BP 87/51; TEMP 98.6; O2SAT 92
[2023-07-27 07:15] LABS: HEMATOCRIT 23.5 % (42.0-52.0); HEMOGLOBIN 8.5 g/dl (13.5-17.5); MEAN CORPUSCULAR HEMOGLOBIN 30.8 pg (27.0-33.0); MEAN CORPUSCULAR HGB CONC 36.2 g/dl (32.0-36.5); MEAN CORPUSCULAR VOLUME 85.1 fl (80.0-96.0); RED BLOOD COUNT 2.76 10^6/uL (4.30-6.10); WHITE BLOOD COUNT 4.7 10^3/uL (4.0-10.0)
[2023-07-27 07:25] LABS: PLATELET COUNT, AUTOMATED 23 10^3/uL (150-450)
[2023-07-27 07:46] LABS: BLOOD UREA NITROGEN 24 MG/DL (9-23); CALCIUM LEVEL 7.2 MG/DL (8.3-10.6); CARBON DIOXIDE LEVEL 23 MMOL/L (20-31); CHLORIDE LEVEL 101 MMOL/L (98-107); CREATININE FOR GFR 0.49 MG/DL (0.70-1.30); GLOMERULAR FILTRATION RATE > 60.0 (>49); GLUCOSE, FASTING 72 MG/DL (74-106); POTASSIUM SERUM 4.2 MMOL/L (3.5-5.1); SODIUM LEVEL 130 MMOL/L (136-145)
[2023-07-27] MEDS ORDERED: MORP1SOL5 PO (09:37)
[2023-07-27] MEDS ORDERED: HYOS125TA PO (09:37)
[2023-07-27] MEDS ORDERED: TRAN1DIS4 TOP (09:37)
[2023-07-27] MEDS ORDERED: ATIV1TAB10 PO (09:37)
[2023-07-27] MEDS: oxyCODONE 5MG TAB PO ONE (09:44)
== END 2023-07-27 14:27 | disposition home or self-care (01) | DRG 368 ==
LOC: M ED 13:34 → M ED INP 18:16 → ENRESERV 18:18 → M ICU 19:57 → M MSPAV 07-21 12:36
PROVIDERS: ADMIT Internal Medicine Pulmonary Disease; ATTEND General Practice
PROC: 30233N1 Transfusion of Nonautologous Red Blood Cells into Peripheral Vein, Percutaneous Approach (ICD-10-PCS; principal; 2023-07-19)
PROC: 30233K1 Transfusion of Nonautologous Frozen Plasma into Peripheral Vein, Percutaneous Approach (ICD-10-PCS; 2023-07-20)
PROC: 0W3P8ZZ Control Bleeding in Gastrointestinal Tract, Via Natural or Artificial Opening Endoscopic (ICD-10-PCS; 2023-07-20)
PROC: 30233J1 Transfusion of Nonautologous Serum Albumin into Peripheral Vein, Percutaneous Approach (ICD-10-PCS; 2023-07-25)
PROC: 0W9G3ZZ Drainage of Peritoneal Cavity, Percutaneous Approach (ICD-10-PCS; 2023-07-25)
PROC: 30233R1 Transfusion of Nonautologous Platelets into Peripheral Vein, Percutaneous Approach (ICD-10-PCS; 2023-07-26)
PROC: B246ZZZ Ultrasonography of Right and Left Heart (ICD-10-PCS; 2023-07-26)
DX: I85.01 Esophageal varices with bleeding (principal); R57.1 Hypovolemic shock; J18.9 Pneumonia, unspecified organism; C34.11 Malignant neoplasm of upper lobe, right bronchus or lung; C78.7 Secondary malignant neoplasm of liver and intrahepatic bile duct; R18.8 Other ascites; D62 Acute posthemorrhagic anemia; E87.1 Hypo-osmolality and hyponatremia; D61.818 Other pancytopenia; R64 Cachexia; K76.6 Portal hypertension; J44.0 Chronic obstructive pulmonary disease with (acute) lower respiratory infection; E87.20 Acidosis, unspecified; D68.9 Coagulation defect, unspecified; N28.89 Other specified disorders of kidney and ureter; F17.200 Nicotine dependence, unspecified, uncomplicated; I70.0 Atherosclerosis of aorta; E87.5 Hyperkalemia; K21.9 Gastro-esophageal reflux disease without esophagitis; I95.9 Hypotension, unspecified; J43.9 Emphysema, unspecified; E27.9 Disorder of adrenal gland, unspecified; K59.00 Constipation, unspecified; K74.60 Unspecified cirrhosis of liver; I77.819 Aortic ectasia, unspecified site; I25.10 Atherosclerotic heart disease of native coronary artery without angina pectoris; M48.00 Spinal stenosis, site unspecified; Z66 Do not resuscitate; R74.01 Elevation of levels of liver transaminase levels; Z79.890 Hormone replacement therapy; Z79.899 Other long term (current) drug therapy; Z11.52 Encounter for screening for COVID-19